=== PATIENT | female | born 1990 | race American Indian/Alaskan Native ===

== ENCOUNTER 2016-12-09 10:25 | Emergency (ER) | payer MEDICAID, OTHER ==
[2016-12-09 10:25] VITALS: BMI 26.6
[2016-12-09 10:34] VITALS: BP 115/61; PULSE 66; RESP 18; TEMP 98.6; O2SAT 100
[2016-12-09] MEDS ORDERED: Sodium Chloride 0.9% 1,000 ML IV STA (11:11)
--- NOTE | 2016-12-09 11:49 | ED PDOC ---
HPI: Back Time Seen by Provider: 12/09/16 11:09 Chief Complaint (Nursing): Back Pain Chief Complaint (Provider): back History Per: Patient History/Exam Limitations: no limitations Additional Complaint(s): 26yo F in ED for eval of flank pain x 2-3days with increased urination, discomfort and nausea without vomiting non fever or chills. admits to vaginal bleeding-but states last week she had her menstrual and is now seeing menstrual like vaginal bleeding. Past Medical History Reviewed: Historical Data, Nursing Documentation, Vital Signs Vital Signs: Last Vital Signs Temp 98.6 F 12/09/16 10:33 Pulse 66 12/09/16 10:33 Resp 18 12/09/16 10:33 BP 115/61 12/09/16 10:33 Pulse Ox 100 12/09/16 10:33 - Medical History PMH: No Chronic Diseases - Family History Family History: States: No Known Family Hx - Home Medications Home Medications: Ambulatory Orders Medication Instructions Recorded Acyclovir [Zovirax] 400 mg PO TID #15 cap 09/09/14 Docusate [Colace] 100 mg PO BID #14 cap 12/09/16 - Allergies Allergies/Adverse Reactions: Allergies Allergy/AdvReac Type Severity Reaction Status Date / Time antiemetic Allergy ANAPHYLAXIS Uncoded 12/09/16 11:00 Review of Systems ROS Statement: Except As Marked, All Systems Reviewed And Found Negative Constitutional: Negative for: Fever, Chills Gastrointestinal: Positive for: Nausea. Negative for: Vomiting, Abdominal Pain Genitourinary Female: Positive for: Frequency, Hematuria Musculoskeletal: Positive for: Back Pain Physical Exam - Reviewed Nursing Documentation Reviewed: Yes Vital Signs Reviewed: Yes - Physical Exam Appears: Positive for: Well, Non-toxic, No Acute Distress Skin: Positive for: Normal Color, Warm, DRY Cardiovascular/Chest: Positive for: Regular Rate, Rhythm Respiratory: Positive for: CNT, Normal Breath Sounds Gastrointestinal/Abdominal: Positive for: Normal Exam, Bowel Sounds, Soft. Negative for: Tenderness Back: Positive for: L CVA Tenderness, R CVA Tenderness Neurologic/Psych: Positive for: Alert, Oriented - Laboratory Results Result Diagrams: 12/09/16 11:40 12/09/16 11:40 - ECG O2 Sat by Pulse Oximetry: 100 - Progress ED Course And Treament: Orders Category Date Time Status ABD & PELVIS W/O PO OR IV CONT [CT] Stat CT 12/09/16 11:11 Ordered COMP METABOLIC PANEL Stat Chem 12/09/16 11:11 Ordered CBC (WITH DIFFERENTIAL) Stat RODRIGO 12/09/16 11:10 Ordered Ketorolac [Toradol] Med 12/09/16 11:11 Discontinued 30 mg IVP STAT STA Sodium Chloride 0.9% 1,000 ml Med 12/09/16 11:11 Active IV 1,000 mls/hr URINE CULTURE Stat Micro 12/09/16 11:36 Ordered URINALYSIS Stat URINALYSIS 12/09/16 11:11 Ordered Medical Decision Making Medical Decision Making: ct scn shows constipation. Udip" shows moderate blood(pt on menstrual ) no leuk or nitrates. Pt given colace and advised to f.u with pmd to have reapt UA. Orders Category Date Time Status ABD & PELVIS W/O PO OR IV CONT [CT] Stat CT 12/09/16 11:11 Completed COMP METABOLIC PANEL Stat Chem 12/09/16 11:40 Completed CBC (WITH DIFFERENTIAL) Stat RODRIGO 12/09/16 11:40 Completed Ketorolac [Toradol] Med 12/09/16 11:11 Discontinued 30 mg IVP STAT STA Sodium Chloride 0.9% 1,000 ml Med 12/09/16 11:11 Discontinued IV 1,000 mls/hr URINE CULTURE Stat Micro 12/09/16 11:37 Received URINALYSIS Stat URINALYSIS 12/09/16 11:37 Completed Disposition - Clinical Impression Clinical Impression: Constipation - Patient ED Disposition Is Patient to be Admitted: No Counseled Patient/Family Regarding: Studies Performed, Diagnosis, Need For Followup, Rx Given - Disposition [facility]errals: [facility]Outside] [facility] [Outside] Disposition: Routine/Home Disposition Time: 13:17 Condition: STABLE Prescriptions: Docusate [Colace] 100 mg PO BID #14 cap Instructions: Constipation (ED) Forms: Laguo (Polish)
[2016-12-09 12:04] LABS: RBC URINE 27 /hpf (0-3); URINE BACTERIA OCC (<OCC); URINE BILIRUBIN NEGATIVE (NEGATIVE); URINE BLOOD MODERATE (NEGATIVE); URINE COLOR YELLOW (YELLOW); URINE GLUCOSE (UA) NEG (Normal); URINE KETONE NEGATIVE (NEGATIVE); URINE LEUKOCYTE ESTERASE SMALL Leu/uL (Negative); URINE PROTEIN 30 mg/dL (NEGATIVE); URINE UROBILINOGEN 0.2-1.0 mg/dL (0.2-1.0); WBC URINE 46 /hpf (0-5)
[2016-12-09 12:05] LABS: BASO # 0.1 K/uL (0.0-0.2); BASO % 0.6 % (0.0-2.0); EOS % 0.3 % (0.0-4.0); HEMATOCRIT 35.6 % (34.0-47.0); LYMPH # 1.4 K/uL (1.0-4.3); LYMPH % 12.6 % (20.0-40.0); MEAN CELL VOLUME 83.2 fl (81.0-99.0); MEAN CORPUSCULAR HEMOGLOBIN 26.5 pg (27.0-31.0); MEAN CORPUSCULAR HGB CONC 31.8 g/dL (33.0-37.0); MEAN PLATELET VOLUME 10.2 fl (7.2-11.7); MONO # 0.8 K/uL (0.0-0.8); MONO % 6.9 % (0.0-10.0); NEUT # 8.8 K/uL (1.8-7.0); NEUT % 79.6 % (50.0-75.0); RED CELL DISTRIBUTION WIDTH 14.4 % (11.5-14.5); WHITE BLOOD COUNT 11.1 K/uL (4.8-10.8)
[2016-12-09 12:26] LABS: ALB/GLOB RATIO 1.4 (1.0-2.1); ALKALINE PHOSPHATASE 59 U/L (38-126); ALT/SGPT 24 U/L (9-52); AST/SGOT 28 U/L (14-36); BILIRUBIN,TOTAL 0.2 mg/dl (0.2-1.3); BLOOD UREA NITROGEN 9 mg/dl (7-17); CALCIUM 8.9 mg/dL (8.4-10.2); CARBON DIOXIDE 24 mmol/L (22-30); CHLORIDE 106 mmol/L (98-107); GFR AFRICAN-AMERICAN > 60; GLUCOSE,RANDOM 83 mg/dL (65-105); POTASSIUM 3.9 MMOL/L (3.6-5.0); SODIUM 141 mmol/l (132-148)
--- NOTE | 2016-12-09 12:54 | CT ---
PROCEDURE: CT Abdomen and Pelvis without Oral or IV contrast. HISTORY: Flank pain COMPARISON: None available. TECHNIQUE: Contiguous axial images of the abdomen and pelvis. No oral or IV contrast administered. Coronal and Sagittal reformats generated and reviewed. Radiation dose: Total exam DLP = 860.59 mGy-cm. This CT exam was performed using one or more of the following dose reduction techniques: Automated exposure control, adjustment of the mA and/or kV according to patient size, and/or use of iterative reconstruction technique. FINDINGS: There is limited evaluation of the solid organs without the administration of IV contrast. LOWER THORAX: No visible consolidation, pleural effusion, or pneumothorax. LIVER: Unremarkable unenhanced appearance. GALLBLADDER AND BILE DUCTS: Contracted gallbladder appears otherwise grossly unremarkable. PANCREAS: Unremarkable unenhanced appearance. SPLEEN: Unremarkable unenhanced appearance. ADRENALS: Unremarkable unenhanced appearance. KIDNEYS AND URETERS: No hydronephrosis or obstructing renal calculus. BLADDER: The urinary bladder appears unremarkable. REPRODUCTIVE: Uterus is present. APPENDIX: The appendix appears within normal limits of caliber. No secondary signs of acute appendicitis. BOWEL: The stomach is nondistended. Lack of oral contrast limits evaluation for bowel pathology. The bowel loops appear within normal limits of caliber without evidence of intestinal obstruction. [id number] constipation. PERITONEUM: No significant free fluid. No definite free air. LYMPH NODES: No bulky lymphadenopathy identified. VASCULATURE: No aortic aneurysm. BONES: No acute osseous abnormality is detected. OTHER FINDINGS: None. IMPRESSION: Mild to moderate constipation.
== END 2016-12-09 13:27 | disposition home or self-care (01) ==
LOC: H.ER 10:25
DX: K59.00 Constipation, unspecified (principal)
CPT/HCPCS: 74176; 80053; 81003; 81025; 85025; 87086; 87181; 96361; 96374; 99282; J1885; J7040

== ENCOUNTER 2016-12-14 23:40 | Observation (INO) | payer MEDICAID ==
[2016-12-14 23:41] VITALS: BMI 26.6
[2016-12-15] MEDS ORDERED: Sodium Chloride 0.9% 1,000 ML IV STA ×2 (00:22→05:01)
--- NOTE | 2016-12-15 00:25 | ED PDOC ---
HPI: Abdomen Time Seen by Provider: 12/14/16 23:49 Chief Complaint (Nursing): GI Problem Chief Complaint (Provider): vomiting History Per: Patient History/Exam Limitations: no limitations Onset/Duration Of Symptoms: Hrs (4) Current Symptoms Are (Timing): Still Present Location Of Pain/Discomfort: RLQ, LLQ, Suprapubic Quality Of Discomfort: Cramping Associated Symptoms: Nausea, Vomiting, Urinary Symptoms Additional History Per: Patient Additional Complaint(s): 26 y/o female presents for evaluation of multiple nonbilious vomiting episodes x 4 hours. Associated lower abdominal pain. Patient states she was seen in ED 12/09/16 and diagnosed with urinary tract infection, has been taking Macrobid. Denies fever, headache, dizziness, chest pain, shortness of breath, palpitations , changes in bowel movements, recent travel. Past Medical History Reviewed: Historical Data, Nursing Documentation, Vital Signs Vital Signs: Last Vital Signs Temp 98.0 F 12/14/16 23:43 Pulse 89 12/14/16 23:43 Resp 16 12/14/16 23:43 BP 154/63 H 12/14/16 23:43 Pulse Ox 100 12/15/16 05:14 - Medical History PMH: No Chronic Diseases - Surgical History Other surgeries: benign brain tumor removal - Family History Family History: States: No Known Family Hx - Social History Current smoker - smoking cessation education provided: No Ex-Smoker (has not smoked in the last 12 months): No Alcohol: Social Drugs: Denies - Home Medications Home Medications: Ambulatory Orders Medication Instructions Recorded Acyclovir [Zovirax] 400 mg PO TID #15 cap 09/09/14 Docusate [Colace] 100 mg PO BID #14 cap 12/09/16 Nitrofurantoin Macrocrystals 100 mg PO BID #14 cap 12/09/16 [Macrobid] - Allergies Allergies/Adverse Reactions: Allergies Allergy/AdvReac Type Severity Reaction Status Date / Time antiemetic Allergy ANAPHYLAXIS Uncoded 12/09/16 11:00 Review of Systems ROS Statement: Except As Marked, All Systems Reviewed And Found Negative Gastrointestinal: Positive for: Nausea, Vomiting, Abdominal Pain Genitourinary Female: Positive for: Frequency Physical Exam - Reviewed Nursing Documentation Reviewed: Yes Vital Signs Reviewed: Yes - Physical Exam Appears: Positive for: Well, Non-toxic, No Acute Distress Head Exam: Positive for: ATRAUMATIC, NORMAL INSPECTION, NORMOCEPHALIC Skin: Positive for: Normal Color Eye Exam: Positive for: Normal appearance ENT: Positive for: Normal ENT Inspection Cardiovascular/Chest: Positive for: Regular Rate, Rhythm Respiratory: Positive for: Normal Breath Sounds Gastrointestinal/Abdominal: Positive for: Normal Exam, Bowel Sounds, Soft, Tenderness (suprapubic, rlq). Negative for: Distended, Guarding, Rebound Back: Positive for: Normal Inspection Extremity: Positive for: Normal ROM Neurologic/Psych: Positive for: Alert, Oriented - Laboratory Results Result Diagrams: 12/15/16 00:20 12/15/16 00:20 - ECG O2 Sat by Pulse Oximetry: 100 - Progress ED Course And Treament: labs, urine, CT abd/pelvis with contrast, IV fluids, IV zofran Patient given second dose of Zofran for returning nausea. IV toradol ordered for pain. EXAM: CT Abdomen and Pelvis With Intravenous Contrast EXAM DATE/TIME: 12/15/2016 1:17 AM CLINICAL HISTORY: 26 years old, female; Pain; Abdominal pain; Localized; Lower; Additional info: Abd pain, vomiting TECHNIQUE: Axial computed tomography images of the abdomen and pelvis with intravenous contrast. All CT scans at this facility use one or more dose reduction techniques, viz.: automated exposure control; ma/kV adjustment per patient size (including targeted exams where dose is matched to indication; i.e. head); or iterative reconstruction technique. Coronal and sagittal reformatted images were created and reviewed. CONTRAST: 90 mL of [id number] administered intravenously. COMPARISON: Prior CT abdomen and pelvis of 2016-12-09 FINDINGS: LOWER THORAX: No infiltrate seen in the lung bases. ABDOMEN: LIVER: No acute abnormality of the liver identified. GALLBLADDER AND BILE DUCTS: No CT evidence of acute cholecystitis. No evidence of significant biliary ductal dilatation. PANCREAS: No CT evidence of acute pancreatitis. SPLEEN: No acute abnormality of the spleen identified. ADRENALS: No acute abnormality of the adrenal glands identified. KIDNEYS AND URETERS: No acute abnormality of the kidneys identified. No evidence of significant hydrouereteronephrosis. STOMACH AND BOWEL: No acute abnormality of the stomach, small bowel or colon identified. No evidence of bowel obstruction. APPENDIX: Appendix is seen, images 46-49 of series 601. It is fluid-filled, and is top normal in caliber, measuring up to 6 mm in diameter. There is no adjacent inflammation. There is no evidence of significant appendiceal wall thickening or enhancement. PELVIS: BLADDER: No acute abnormality of the bladder identified. REPRODUCTIVE:No acute abnormality of the reproductive organs is seen. No acute abnormality of the uterus identified. No evidence of large adnexal masses. ABDOMEN and PELVIS: INTRAPERITONEAL SPACE: Tiny amount of free fluid in the cul-de-sac. This is most likely physiologic in nature. No evidence of free air. BONES/JOINTS: No acute fractures or other acute bony abnormality noted. SOFT TISSUES: No acute abnormality of the visualized soft tissues is seen. VASCULATURE: No evidence of abdominal aortic aneurysm. No evidence of periaortic hemorrhage. LYMPH NODES: No evidence of diffuse lymphadenopathy. IMPRESSION: - Appendix is fluid-filled and top normal in size, but there is no adjacent inflammation. Findings are most likely within normal limits. However, if there is any clinical concern for early acute appendicitis, consider a short term followup CT scan, to reassess the appendix. - Otherwise, no evidence of significant acute process. - See above for remaining findings. On re-eval, patient actively vomiting. Case discussed with Dr. Valdez, Hospitalist on-call, regarding placement in observation for intractable vomiting. Case discussed with Dr. Strong, rn surgical on-call, regarding consult Disposition - Clinical Impression Clinical Impression: Intractable vomiting, Abdominal pain - Patient ED Disposition Is Patient to be Admitted: Yes - Disposition Disposition Time: 05:15 Condition: FAIR
[2016-12-15 00:41] LABS: BASO % 0.3 % (0.0-2.0); EOS % 0.3 % (0.0-4.0); HEMATOCRIT 39.5 % (34.0-47.0); LYMPH # 0.8 K/uL (1.0-4.3); LYMPH % 7.4 % (20.0-40.0); MEAN CELL VOLUME 83.6 fl (81.0-99.0); MEAN CORPUSCULAR HEMOGLOBIN 26.2 pg (27.0-31.0); MEAN CORPUSCULAR HGB CONC 31.4 g/dL (33.0-37.0); MEAN PLATELET VOLUME 10.7 fl (7.2-11.7); MONO # 0.8 K/uL (0.0-0.8); MONO % 7.2 % (0.0-10.0); NEUT # 9.6 K/uL (1.8-7.0); NEUT % 84.8 % (50.0-75.0); PLATELET COUNT 231 K/uL (130-400); RED CELL DISTRIBUTION WIDTH 14.4 % (11.5-14.5); WHITE BLOOD COUNT 11.3 K/uL (4.8-10.8)
[2016-12-15 00:49] LABS: RBC URINE 11 /hpf (0-3); URINE BILIRUBIN SMALL (NEGATIVE); URINE BLOOD NEGATIVE (NEGATIVE); URINE COLOR AMBER (YELLOW); URINE GLUCOSE (UA) NEG (Normal); URINE KETONE NEGATIVE (NEGATIVE); URINE LEUKOCYTE ESTERASE SMALL Leu/uL (Negative); URINE PROTEIN 100 mg/dL (NEGATIVE); WBC URINE 13 /hpf (0-5)
[2016-12-15 00:55] LABS: ALB/GLOB RATIO 1.3 (1.0-2.1); ALKALINE PHOSPHATASE 65 U/L (38-126); ALT/SGPT 21 U/L (9-52); AST/SGOT 44 U/L (14-36); BILIRUBIN,TOTAL 0.9 mg/dl (0.2-1.3); BLOOD UREA NITROGEN 10 mg/dl (7-17); CALCIUM 9.1 mg/dL (8.4-10.2); CARBON DIOXIDE 22 mmol/L (22-30); CHLORIDE 102 mmol/L (98-107); GFR AFRICAN-AMERICAN > 60; GLUCOSE,RANDOM 86 mg/dL (65-105); LIPASE 83 U/L (23-300); POTASSIUM 4.7 MMOL/L (3.6-5.0); SODIUM 139 mmol/l (132-148); TOTAL PROTEIN 8.5 G/DL (6.3-8.2)
[2016-12-15] MEDS ORDERED: Iohexol 240 (50 ml) PO ONE (01:17)
[2016-12-15] MEDS ORDERED: Iohexol 240 (50 ml) ONE (01:19)
[2016-12-15 01:59] LABS: EOSINOPHIL 1 % (0-7); NEUTROPHIL 81 % (42-75); TOTAL CELLS COUNTED 100
[2016-12-15 02:00] LABS: STOMATOCYTES SLIGHT
[2016-12-15] MEDS ORDERED: Sodium Chloride 0.9% 50 ML IV ONE (02:37)
[2016-12-15] MEDS ORDERED: Iohexol 300 100 ML IJ ONE (02:37)
--- NOTE | 2016-12-15 03:49 | CT ---
EXAM: CT Abdomen and Pelvis With Intravenous Contrast EXAM DATE/TIME: 12/15/2016 1:17 AM CLINICAL HISTORY: 26 years old, female; Pain; Abdominal pain; Localized; Lower; Additional info: Abd pain, vomiting TECHNIQUE: Axial computed tomography images of the abdomen and pelvis with intravenous contrast. All CT scans at this facility use one or more dose reduction techniques, viz.: automated exposure control; ma/kV adjustment per patient size (including targeted exams where dose is matched to indication; i.e. head); or iterative reconstruction technique. Coronal and sagittal reformatted images were created and reviewed. CONTRAST: 90 mL of [id number] administered intravenously. COMPARISON: Prior CT abdomen and pelvis of 2016-12-09 FINDINGS: LOWER THORAX: No infiltrate seen in the lung bases. ABDOMEN: LIVER: No acute abnormality of the liver identified. GALLBLADDER AND BILE DUCTS: No CT evidence of acute cholecystitis. No evidence of significant biliary ductal dilatation. PANCREAS: No CT evidence of acute pancreatitis. SPLEEN: No acute abnormality of the spleen identified. ADRENALS: No acute abnormality of the adrenal glands identified. KIDNEYS AND URETERS: No acute abnormality of the kidneys identified. No evidence of significant hydrouereteronephrosis. STOMACH AND BOWEL: No acute abnormality of the stomach, small bowel or colon identified. No evidence of bowel obstruction. APPENDIX: Appendix is seen, images 46-49 of series 601. It is fluid-filled, and is top normal in caliber, measuring up to 6 mm in diameter. There is no adjacent inflammation. There is no evidence of significant appendiceal wall thickening or enhancement. PELVIS: BLADDER: No acute abnormality of the bladder identified. REPRODUCTIVE:No acute abnormality of the reproductive organs is seen. No acute abnormality of the uterus identified. No evidence of large adnexal masses. ABDOMEN and PELVIS: INTRAPERITONEAL SPACE: Tiny amount of free fluid in the cul-de-sac. This is most likely physiologic in nature. No evidence of free air. BONES/JOINTS: No acute fractures or other acute bony abnormality noted. SOFT TISSUES: No acute abnormality of the visualized soft tissues is seen. VASCULATURE: No evidence of abdominal aortic aneurysm. No evidence of periaortic hemorrhage. LYMPH NODES: No evidence of diffuse lymphadenopathy. IMPRESSION: - Appendix is fluid-filled and top normal in size, but there is no adjacent inflammation. Findings are most likely within normal limits. However, if there is any clinical concern for early acute appendicitis, consider a short term followup CT scan, to reassess the appendix. - Otherwise, no evidence of significant acute process. - See above for remaining findings.
--- NOTE | 2016-12-15 06:16 | CP.PCM.HP ---
History of Present Illness - History of Present Illness History of Present Illness: CC: Abdominal pain This is a 26 year old female with a past medical history of urinary tract infection diagnosed on 12/09/2016, history of benign brain tumor status post removal, who presents to the emergency department with the complaint of right lower quadrant abdominal pain starting yesterday evening at 8 PM described as sharp, crampy, nonradiating, worse with movement, moderate in severity. The pain is associated with nonbilious nonbloody emesis. She states she has vomited multiple times since 8 PM prompting her to come to the emergency department. Here in the emergency department, the patient's vitals were found to be stable. Given her symptoms, a CT scan of the abdomen and pelvis was performed revealing findings compatible with possible early appendicitis. Despite multiple administrations of Zofran, the patient still remains nauseated and has intractable vomiting. Laboratory findings reveal a mild leukocytosis of 11.3, neutrophil count of 84.8. CMP shows a mild elevation in AST at 44 but normal ALT at 21, alkaline phosphatase is 65. Urinalysis reveals concentrated urine and some white blood cells, although she has a known diagnosis of UTI. It does show urobilinogen of 4.0 as well which is increased from normal range back on . Given the patient's intractable vomiting and possible early appendicitis, she is to be placed on observation for further workup and management. The patient denies any chance she might be . Surgery consultation was obtained from the ER.Patient denies chest pain, shortness of breath, fevers, chills, nausea, vomiting, diarrhea, headache. Rest of ROS as below. All of the patient's and/or family's questions were answered at the bedside. Present on Admission - Present on Admission Any Indicators Present on Admission: No Review of Systems - Hematologic/Lymphatic Additional comments: GENERAL/CONSTITUTIONAL: The patient denies fever, fatigue, weakness, weight gain or weight loss. HEAD, EYES, EARS, NOSE AND THROAT: Eyes - The patient denies pain, redness, loss of vision, double or blurred vision, flashing lights or spots, dryness, Ears, nose, mouth and throat. The patient denies ringing in the ears, loss of hearing, nosebleeds, loss of sense of smell, dry sinuses, sinusitis, post nasal drip, CARDIOVASCULAR: The patient denies chest pain, chest pressure, or irregular heartbeats, RESPIRATORY: The patient denies chronic dry cough, coughing up blood, coughing up mucus, wheezing, or shortness of breath. GASTROINTESTINAL: Abdominal pain as in HPI. Nausea and vomiting as in HPI. The patient denies vomiting blood or coffee ground material, heartburn, regurgitation, diarrhea, constipation, gas, blood in the stools, black tarry stools. GENITOURINARY: The patient denies difficult urination, pain or burning with urination, blood in the urine, frequency, or urgency MUSCULOSKELETAL: The patient denies arm, buttock, thigh or calf cramps. No joint or muscle pain. No muscle weakness or tenderness. No joint swelling, neck pain, back pain. SKIN: The patient denies easy bruising, skin redness, skin rash, hives, sensitivity to sun exposure, tightness, nodules or bumps, hair loss, color changes in the hands or feet with cold. NEUROLOGIC: The patient denies headache, dizziness, fainting, muscle spasm, loss of consciousness, sensitivity or pain in the hands and feet or memory loss. PSYCHIATRIC: The patient denies anxiety, depression, or thoughts of suicide. ENDOCRINE: The patient denies intolerance to hot or cold temperature, flushing, fingernail changes, increased thirst, increased salt intake or decreased sexual desire. HEMATOLOGIC/LYMPHATIC: The patient denies anemia, bleeding tendency or clotting tendency. ALLERGIC/IMMUNOLOGIC: The patient denies rhinitis, asthma, skin sensitivity, latex allergies or sensitivity. Past Patient History - Infectious Disease Hx of Infectious Diseases: None - Past Medical History & Family History Past Family History: Reviewed and not pertinent - Past Social History Smoking Status: Current Some Days Smoker Alcohol: Social Drugs: Denies - NEUROLOGICAL Other/Comment: brain tumor with surgery - PSYCHIATRIC Hx Substance Use: No - SURGICAL HISTORY Hx Surgeries: Yes Other/Comment: brain tumor removal - ANESTHESIA Hx Anesthesia: Yes Hx Anesthesia Reactions: No Meds Allergies/Adverse Reactions: Allergies Allergy/AdvReac Type Severity Reaction Status Date / Time metoclopramide [From Reglan] AdvReac WHEEZING Verified 12/15/16 05:35 antiemetic Allergy ANAPHYLAXIS Uncoded 12/09/16 11:00 Physical Exam - Additional Findings Additional findings: EXAM: Vitals stable and reviewed GEN: WDWN, alert, cooperative HEENT: NCAT, PERRL, EOMI Neck: supple, no lymphadenopathy CARDIO: +S1S2, RRR, NO M/R/G LUNG: CTAB, NO W/R/R ABD: soft, tender to palpation of the right lower quadrant, ND, tattoo noted no masses, no HSM EXT: no edema, pedal pulses Neuro: AAOx3, Strength equal, bilateral UE/LE Psych: normal mood, normal affect Results - Vital Signs Recent Vital Signs: Last Vital Signs Temp 98.9 F 12/15/16 05:42 Pulse 83 12/15/16 05:42 Resp 19 12/15/16 05:42 BP 102/61 12/15/16 05:42 Pulse Ox 100 12/15/16 05:42 - Labs Result Diagrams: 12/15/16 00:20 12/15/16 00:20 Labs: Laboratory Results - last 24 hr 12/15/16 12/15/16 12/15/16 00:20 00:20 00:20 WBC 11.3 H RBC 4.73 Hgb 12.4 Hct 39.5 MCV 83.6 MCH 26.2 L MCHC 31.4 L RDW 14.4 Plt Count 231 MPV 10.7 Neut % (Auto) 84.8 H Lymph % (Auto) 7.4 L Coke % (Auto) 7.2 Eos % (Auto) 0.3 Baso % (Auto) 0.3 Neut # 9.6 H Lymph # 0.8 L Coke # 0.8 Eos # 0.0 Baso # 0.0 Neutrophils % (Manual) 81 H Lymphocytes % (Manual) 10 L Monocytes % (Manual) 8 Eosinophils % (Manual) 1 Platelet Estimate Normal Anisocytosis (manual) Slight Stomatocytes Slight Sodium 139 Potassium 4.7 Chloride 102 Carbon Dioxide 22 Anion Gap 20 BUN 10 Creatinine 0.8 Est GFR ( Amer) > 60 Est GFR (Non-Af Amer) > 60 Random Glucose 86 Calcium 9.1 Total Bilirubin 0.9 AST 44 H D ALT 21 Alkaline Phosphatase 65 Total Protein 8.5 H Albumin 4.8 Globulin 3.7 Albumin/Globulin Ratio 1.3 Lipase 83 Urine Color Radha Urine Clarity Cloudy Urine pH 6.0 Ur Specific Jackpot 1.033 H Urine Protein 100 Urine Glucose (UA) Neg Urine Ketones Negative Urine Blood Negative Urine Nitrate Negative Urine Bilirubin Small Urine Urobilinogen 4.0 H Ur Leukocyte Esterase Small Urine RBC (Auto) 11 H Urine Microscopic WBC 13 H Ur Squamous Epith Cells 5 Assessment & Plan - Assessment and Plan (Free Text) Plan: ASSESSMENT - Right lower quadrant abdominal pain, likely possible early appendicitis on CT scan, no other evidence of acute abnormality on CT scan - Intractable nausea and vomiting, not responding to Zofran. F/u test - Mild elevation in ALT, uncertain etiology, with elevated urobilinogen in urine - UTI, subacute, on Macrobid, improving - Leukocytosis related to UTI and/or acute appendicitis PLAN - Med/surg observation - Surgical consultation called from ED - NPO status until nausea improves - Will start Compazine 5 mg IV q 4h PRN for nausea and vomiting and continue Zofran as well. Patient is allergic to Reglan. - Continue normal saline at 150 cc/hour for rehydration. She was given 2 liters bolus in the ED - Monitor electrolytes, trend CBC. - Continue Macrobid - F/u test - DVT prophylaxis with SCDs as patient may require surgery.
[2016-12-15] MEDS: Sodium Chloride 0.9% 1,000 ML IV SCH ×3 (06:17→21:21)
--- NOTE | 2016-12-15 10:51 | CP.PCM.CON ---
History of Present Illness - History of Present Illness History of Present Illness: Surgery: Dr. Holder CC: n/v, RLQ abdominal pain HPI: Patient is a 26 y/o female w/ significant pmhx pituitary adenoma s/p resection 4years ago present complaining of nausea and vomiting that started around 8 pm last night. She states that she had eaten chicken and rice earlier in the day w/o any symptoms. She states the RLQ abdominal pain started after the nausea and vomiting. She describes the pain as sharp in nature located in RLQ with some radiation to the midline. She denies having similar pain in the past. She states she recently had UTI which she is finishing a course of antibiotics but did not have pain like this. She denies constipation or diarrhea , fever or chills. She denies sick contacts. PMH: pituitary adenoma, UTI currently on Macrobid PSH: pituitary adenectomy Social: denies ETOH, tobacco, drug abuse Review of Systems - Review of Systems All systems: reviewed and no additional remarkable complaints except Review of Systems: unless stated in HPI Past Patient History - Infectious Disease Hx of Infectious Diseases: None - Past Medical History & Family History Past Family History: Reviewed and not pertinent - Past Social History Smoking Status: Current Some Days Smoker Alcohol: Social Drugs: Denies - NEUROLOGICAL Other/Comment: brain tumor with surgery - PSYCHIATRIC Hx Substance Use: No - SURGICAL HISTORY Hx Surgeries: Yes Other/Comment: brain tumor removal - ANESTHESIA Hx Anesthesia: Yes Hx Anesthesia Reactions: No Meds Allergies/Adverse Reactions: Allergies Allergy/AdvReac Type Severity Reaction Status Date / Time metoclopramide [From Reglan] AdvReac WHEEZING Verified 12/15/16 06:47 antiemetic Allergy ANAPHYLAXIS Uncoded 12/09/16 11:00 - Medications Medications: Current Medications Home Med (Norgestimate-Ethinyl Estradiol [Tri-Sprintec Tablet]) 1 tab PO DAILY [facility] Sodium Chloride (Sodium Chloride 0.9%) 1,000 mls @ 150 mls/hr IV .Q6H40M [facility] Stop: 12/16/16 05:42 Last Admin: 12/15/16 06:17 Dose: 150 mls/hr Piperacillin Sod/Tazobactam Sod (Zosyn 3.375 Gm Iv Premix) 3.375 gm in 50 mls @ 50 mls/hr IVPB Q6 VASILIY PRN Reason: Protocol Ketorolac Tromethamine (Toradol) 30 mg IVP Q6 PRN PRN Reason: Pain, moderate (4-7) Nitrofurantoin Macrocrystals (Macrobid) 100 mg PO BID VASILIY Ondansetron HCl (Zofran Inj) 4 mg IVP Q6 PRN PRN Reason: Nausea/Vomiting Promethazine HCl (Phenergan Inj) 25 mg IM Q6 PRN PRN Reason: Nausea/Vomiting Last Admin: 12/15/16 06:52 Dose: 25 mg Physical Exam - Constitutional Appears: Non-toxic, No Acute Distress - Head Exam Head Exam: ATRAUMATIC, NORMOCEPHALIC - Eye Exam Eye Exam: EOMI, Normal appearance - ENT Exam ENT Exam: Mucous Membranes Moist - Respiratory Exam Respiratory Exam: NORMAL BREATHING PATTERN. absent: Respiratory Distress - Cardiovascular Exam Cardiovascular Exam: REGULAR RHYTHM. absent: Tachycardia - GI/Abdominal Exam GI & Abdominal Exam: Guarding (RLQ), Tenderness. absent: Distended, Rebound Additional comments: +McBurney's, -Rovsing's, -Psoas, -Obturatior Signs - Extremities Exam Extremities exam: Positive for: normal inspection. Negative for: calf tenderness - Neurological Exam Neurological exam: Alert, Oriented x3 - Psychiatric Exam Psychiatric exam: Normal Affect, Normal Mood - Skin Skin Exam: Dry, Normal Color, Warm Results - Vital Signs Recent Vital Signs: Last Vital Signs Temp 99 F 12/15/16 09:49 Pulse 80 12/15/16 09:49 Resp 18 12/15/16 09:49 BP 106/56 L 12/15/16 09:49 Pulse Ox 100 12/15/16 09:49 - Labs Result Diagrams: 12/15/16 00:20 12/15/16 00:20 Labs: Laboratory Results - last 24 hr 12/15/16 12/15/16 12/15/16 00:20 00:20 00:20 WBC 11.3 H RBC 4.73 Hgb 12.4 Hct 39.5 MCV 83.6 MCH 26.2 L MCHC 31.4 L RDW 14.4 Plt Count 231 MPV 10.7 Neut % (Auto) 84.8 H Lymph % (Auto) 7.4 L [place] % (Auto) 7.2 Eos % (Auto) 0.3 Baso % (Auto) 0.3 Neut # 9.6 H Lymph # 0.8 L [place] # 0.8 Eos # 0.0 Baso # 0.0 Neutrophils % (Manual) 81 H Lymphocytes % (Manual) 10 L Monocytes % (Manual) 8 Eosinophils % (Manual) 1 Platelet Estimate Normal Anisocytosis (manual) Slight Stomatocytes Slight Sodium 139 Potassium 4.7 Chloride 102 Carbon Dioxide 22 Anion Gap 20 BUN 10 Creatinine 0.8 Est GFR ( Amer) > 60 Est GFR (Non-Af Amer) > 60 Random Glucose 86 Calcium 9.1 Total Bilirubin 0.9 AST 44 H D ALT 21 Alkaline Phosphatase 65 Total Protein 8.5 H Albumin 4.8 Globulin 3.7 Albumin/Globulin Ratio 1.3 Lipase 83 Urine Color Radha Urine Clarity Cloudy Urine pH 6.0 Ur Specific [place] 1.033 H Urine Protein 100 Urine Glucose (UA) Neg Urine Ketones Negative Urine Blood Negative Urine Nitrate Negative Urine Bilirubin Small Urine Urobilinogen 4.0 H Ur Leukocyte Esterase Small Urine RBC (Auto) 11 H Urine Microscopic WBC 13 H Ur Squamous Epith Cells 5 Assessment & Plan - Assessment and Plan (Free Text) Assessment: 26 y/o female w/ RLQ abdominal pain, possible early appendicitis Plan: -OR today for appendectomy -NPO -ABX -pain control -repeat labs -d/w Dr. Gallo Porter PGY3
[2016-12-15] MEDS: NORGESTIMATE ETHINYL ESTRADIOL PO SCH (11:32)
[2016-12-15] MEDS: Piperacill/Tazo 3.375gm in Dex 3.375 GM/50 ML BAG IVPB SCH ×3 (11:32→21:20)
[2016-12-15 11:35] LABS: BASO % 0.2 % (0.0-2.0); EOS % 0.1 % (0.0-4.0); HEMATOCRIT 35.2 % (34.0-47.0); LYMPH # 0.6 K/uL (1.0-4.3); LYMPH % 10.4 % (20.0-40.0); MEAN CORPUSCULAR HEMOGLOBIN 26.4 pg (27.0-31.0); MEAN CORPUSCULAR HGB CONC 31.8 g/dL (33.0-37.0); MONO # 0.5 K/uL (0.0-0.8); MONO % 7.7 % (0.0-10.0); NEUT % 81.6 % (50.0-75.0); RED CELL DISTRIBUTION WIDTH 14.2 % (11.5-14.5); WHITE BLOOD COUNT 6.1 K/uL (4.8-10.8)
[2016-12-15 11:41] LABS: ALB/GLOB RATIO 1.4 (1.0-2.1); ALKALINE PHOSPHATASE 61 U/L (38-126); ALT/SGPT 29 U/L (9-52); AST/SGOT 36 U/L (14-36); BILIRUBIN,TOTAL 0.6 mg/dl (0.2-1.3); BLOOD UREA NITROGEN 9 mg/dl (7-17); CALCIUM 7.5 mg/dL (8.4-10.2); CARBON DIOXIDE 22 mmol/L (22-30); CHLORIDE 106 mmol/L (98-107); GFR AFRICAN-AMERICAN > 60; GLUCOSE,RANDOM 79 mg/dL (65-105); POTASSIUM 3.8 MMOL/L (3.6-5.0); SODIUM 137 mmol/l (132-148); TOTAL PROTEIN 6.9 G/DL (6.3-8.2)
[2016-12-15] MEDS ORDERED: Pneumococcal 23-Valent Vaccine IM ONE (12:48)
[2016-12-15] MEDS ORDERED: Influenza Vaccine 18yr & older 0.5 ML/45 MCG SYR IM ONE (13:05)
[2016-12-15] MEDS ORDERED: Bupivacaine 0.5% Inj(30mL) ONE (13:44)
[2016-12-15] MEDS ORDERED: Lidocaine 1% Inj (20ml) ONE (13:44)
[2016-12-15] MEDS ORDERED: Rocuronium 10 mg/ml (5 ml) ONE (14:32)
[2016-12-15] MEDS ORDERED: Succinylcholine 200 mg/10 ml Inj IV ONE (14:32)
[2016-12-15] MEDS ORDERED: Propofol 10 mg/ml Inj (20 ML) ONE (14:32)
[2016-12-15] MEDS ORDERED: Midazolam 2 MG/2 ML VIAL ONE (14:32)
[2016-12-15] MEDS ORDERED: Lactated Ringer's 1,000 ML IV ONE (14:50)
[2016-12-15] MEDS ORDERED: Sevoflurane - Inhalation Anesthetic Liq (250 ml) ONE (15:07)
[2016-12-15] MEDS ORDERED: Bupivacaine 0.5% Inj(30mL) IJ ONE (15:40)
[2016-12-15] MEDS ORDERED: Neostigmine Methylsulfate 2 MG/2 ML ML IV ONE (15:40)
[2016-12-15] MEDS ORDERED: HYDROmorphone 0.5 mg/0.5 ml ISec IVP PRN (15:59)
--- NOTE | 2016-12-15 16:09 | PCM.SURG1 ---
Surgeon's Initial Post Op Note - Surgeon's Notes Surgeon: Dr. Holder Home Health Attendant: Dr. Bosch PGY-3, Dr. Mccray PGY-2, Dr. Vyas PGY-2 Type of Anesthesia: General Endo Pre-Operative Diagnosis: acute appendicitis Operative Findings: appendicitis Post-Operative Diagnosis: same Operation Performed: laparoscopic appendectomy Specimen/Specimens Removed: appendix Estimated Blood Loss: EBL {In ML}: 5 Blood Products Given: N/A Drains Used: No Drains Post-Op Condition: Good Date of Surgery/Procedure: 12/15/16 Time of Surgery/Procedure: 16:11
[2016-12-16] MEDS: Sodium Chloride 0.9% 1,000 ML IV SCH (02:36)
[2016-12-16 05:23] LABS: BASO % 0.1 % (0.0-2.0); EOS % 0.1 % (0.0-4.0); HEMATOCRIT 29.7 % (34.0-47.0); LYMPH # 1.1 K/uL (1.0-4.3); LYMPH % 17.7 % (20.0-40.0); MEAN CELL VOLUME 82.6 fl (81.0-99.0); MEAN CORPUSCULAR HEMOGLOBIN 26.5 pg (27.0-31.0); MEAN CORPUSCULAR HGB CONC 32.1 g/dL (33.0-37.0); MEAN PLATELET VOLUME 10.5 fl (7.2-11.7); MONO # 0.6 K/uL (0.0-0.8); MONO % 9.3 % (0.0-10.0); NEUT # 4.5 K/uL (1.8-7.0); NEUT % 72.8 % (50.0-75.0); RED CELL DISTRIBUTION WIDTH 14.4 % (11.5-14.5); WHITE BLOOD COUNT 6.2 K/uL (4.8-10.8)
[2016-12-16 05:33] LABS: BLOOD UREA NITROGEN 6 mg/dl (7-17); CALCIUM 6.9 mg/dL (8.4-10.2); CARBON DIOXIDE 24 mmol/L (22-30); CHLORIDE 107 mmol/L (98-107); GFR AFRICAN-AMERICAN > 60; GLUCOSE,RANDOM 99 mg/dL (65-105); POTASSIUM 3.8 MMOL/L (3.6-5.0); SODIUM 139 mmol/l (132-148)
[2016-12-16] MEDS: Piperacill/Tazo 3.375gm in Dex 3.375 GM/50 ML BAG IVPB SCH ×2 (05:42→09:18)
--- NOTE | 2016-12-16 07:38 | CP.PCM.PN ---
Subjective - Date & Time of Evaluation Date of Evaluation: 12/16/16 Time of Evaluation: 06:50 - Subjective Subjective: Patient seen and examined this AM. NAEO. Patient denies any nausea, vomiting, and is tolerating regular diet with minimal pain. Objective - Vital Signs/Intake and Output Vital Signs (last 24 hours): Temp Pulse Resp BP Pulse Ox 98.1 F 75 18 99/66 L 99 12/16/16 04:43 12/16/16 04:43 12/16/16 04:43 12/16/16 04:43 12/16/16 04:43 - Medications Medications: Current Medications Home Med (Norgestimate-Ethinyl Estradiol [Tri-Sprintec Tablet]) 1 tab PO DAILY [facility] Last Admin: 12/15/16 11:32 Dose: Not Given Piperacillin Sod/Tazobactam Sod (Zosyn 3.375 Gm Iv Premix) 3.375 gm in 50 mls @ 50 mls/hr IVPB Q6 VASILIY PRN Reason: Protocol Last Admin: 12/16/16 05:42 Dose: 50 mls/hr Influenza Virus Vaccine (Afluria (Pf)(18yr & Older)) 0.5 ml IM .ONCE ONE Stop: 12/17/19 09:01 Nitrofurantoin Macrocrystals (Macrobid) 100 mg PO BID [facility] Last Admin: 12/15/16 17:00 Dose: Not Given Ondansetron HCl (Zofran Inj) 4 mg IVP Q6 PRN PRN Reason: Nausea/Vomiting Pantoprazole Sodium (Protonix Inj) 40 mg IVP DAILY [facility] Tramadol HCl (Ultram) 50 mg PO Q6 PRN PRN Reason: Pain, moderate (4-7) - Labs Labs: 12/16/16 04:20 12/16/16 04:20 - Constitutional Appears: Non-toxic, No Acute Distress - Head Exam Head Exam: ATRAUMATIC, NORMOCEPHALIC - Eye Exam Eye Exam: Normal appearance. absent: Conjunctival injection, Scleral icterus - ENT Exam ENT Exam: Mucous Membranes Moist, Normal Oropharynx - Respiratory Exam Respiratory Exam: NORMAL BREATHING PATTERN. absent: Accessory Muscle Use, Respiratory Distress - Cardiovascular Exam Cardiovascular Exam: RRR - GI/Abdominal Exam GI & Abdominal Exam: Distended (mild), Soft, Tenderness (leah-incisional and suprapubic mild tendnerness) Additional comments: Surgical incision well approximate and covered in dermabond c/d/i - Extremities Exam Extremities Exam: absent: Calf Tenderness, Pedal Edema, Tenderness - Neurological Exam Neurological Exam: Alert, Awake, Oriented x3 - Psychiatric Exam Psychiatric exam: Normal Affect, Normal Mood - Skin Skin Exam: Dry, Normal Color, Warm Assessment and Plan - Assessment and Plan (Free Text) Assessment: 26F POD#1 s/p laparscopic appendectomy Plan: -Continue regular diet -PO pain medication -Encouraged ambulation and incentive spirometer use -Clear for discharge to home from a surgical standpoint. Should follow up with Dr. Holder in his office in 2 weeks. Thank you for this consult discussed with Dr. Elena, covering for Dr. Gallo Vyas, PGY2
[2016-12-16] MEDS: NORGESTIMATE ETHINYL ESTRADIOL PO SCH (09:19)
[2016-12-16 12:39] VITALS: BP 100/66; PULSE 77; RESP 100; TEMP 98.3; O2SAT 20
--- NOTE | 2016-12-16 14:04 | CP.PCM.DIS ---
Provider - Provider Date of Admission: 12/15/16 05:11 Attending physician: Suman Valdez DO Consults: Surgery consult Time Spent in preparation of Discharge (in minutes): 15 Hospital Course - Lab Results Lab Results: Micro Results 12/15/16 06:29 Urine,Clean Catch Urine Culture - Final No Growth (<1,000 CFU/ML) Most Recent Lab Values WBC 6.2 K/uL (4.8-10.8) 12/16/16 04:20 RBC 3.60 Mil/uL (3.80-5.20) L 12/16/16 04:20 Hgb 9.5 g/dL (12.0-16.0) L 12/16/16 04:20 Hct 29.7 % (34.0-47.0) L 12/16/16 04:20 MCV 82.6 fl (81.0-99.0) 12/16/16 04:20 MCH 26.5 pg (27.0-31.0) L 12/16/16 04:20 MCHC 32.1 g/dL (33.0-37.0) L 12/16/16 04:20 RDW 14.4 % (11.5-14.5) 12/16/16 04:20 Plt Count 187 K/uL (130-400) 12/16/16 04:20 MPV 10.5 fl (7.2-11.7) 12/16/16 04:20 Neut % (Auto) 72.8 % (50.0-75.0) 12/16/16 04:20 Lymph % (Auto) 17.7 % (20.0-40.0) L 12/16/16 04:20 [place] % (Auto) 9.3 % (0.0-10.0) 12/16/16 04:20 Eos % (Auto) 0.1 % (0.0-4.0) 12/16/16 04:20 Baso % (Auto) 0.1 % (0.0-2.0) 12/16/16 04:20 Neut # 4.5 K/uL (1.8-7.0) 12/16/16 04:20 Lymph # 1.1 K/uL (1.0-4.3) 12/16/16 04:20 [place] # 0.6 K/uL (0.0-0.8) 12/16/16 04:20 Eos # 0.0 K/uL (0.0-0.7) 12/16/16 04:20 Baso # 0.0 K/uL (0.0-0.2) 12/16/16 04:20 Neutrophils % (Manual) 81 % (42-75) H 12/15/16 00:20 Lymphocytes % (Manual) 10 % (20-50) L 12/15/16 00:20 Monocytes % (Manual) 8 % (0-10) 12/15/16 00:20 Eosinophils % (Manual) 1 % (0-7) 12/15/16 00:20 Platelet Estimate Normal (NORMAL) 12/15/16 00:20 Anisocytosis (manual) Slight 12/15/16 00:20 Stomatocytes Slight 12/15/16 00:20 Sodium 139 mmol/l (132-148) 12/16/16 04:20 Potassium 3.8 MMOL/L (3.6-5.0) 12/16/16 04:20 Chloride 107 mmol/L (98-107) 12/16/16 04:20 Carbon Dioxide 24 mmol/L (22-30) 12/16/16 04:20 Anion Gap 11 (10-20) 12/16/16 04:20 BUN 6 mg/dl (7-17) L 12/16/16 04:20 Creatinine 0.8 mg/dL (0.7-1.2) 12/16/16 04:20 Est GFR ( Amer) > 60 12/16/16 04:20 Est GFR (Non-Af Amer) > 60 12/16/16 04:20 Random Glucose 99 mg/dL (65-105) 12/16/16 04:20 Calcium 6.9 mg/dL (8.4-10.2) L 12/16/16 04:20 Total Bilirubin 0.6 mg/dl (0.2-1.3) 12/15/16 11:25 AST 36 U/L (14-36) 12/15/16 11:25 ALT 29 U/L (9-52) 12/15/16 11:25 Alkaline Phosphatase 61 U/L (38-126) 12/15/16 11:25 Total Protein 6.9 G/DL (6.3-8.2) 12/15/16 11:25 Albumin 4.0 g/dL (3.5-5.0) 12/15/16 11:25 Globulin 2.9 gm/dL (2.2-3.9) 12/15/16 11:25 Albumin/Globulin Ratio 1.4 (1.0-2.1) 12/15/16 11:25 Lipase 83 U/L (23-300) 12/15/16 00:20 Urine Color Radha (YELLOW) 12/15/16 00:20 Urine Clarity Cloudy (Clear) 12/15/16 00:20 Urine pH 6.0 (5.0-8.0) 12/15/16 00:20 Ur Specific [place] 1.033 (1.003-1.030) H 12/15/16 00:20 Urine Protein 100 mg/dL (NEGATIVE) 12/15/16 00:20 Urine Glucose (UA) Neg mg/dL (Normal) 12/15/16 00:20 Urine Ketones Negative mg/dL (NEGATIVE) 12/15/16 00:20 Urine Blood Negative (NEGATIVE) 12/15/16 00:20 Urine Nitrate Negative (NEGATIVE) 12/15/16 00:20 Urine Bilirubin Small (NEGATIVE) 12/15/16 00:20 Urine Urobilinogen 4.0 mg/dL (0.2-1.0) H 12/15/16 00:20 Ur Leukocyte Esterase Small Guillermina/uL (Negative) 12/15/16 00:20 Urine RBC (Auto) 11 /hpf (0-3) H 12/15/16 00:20 Urine Microscopic WBC 13 /hpf (0-5) H 12/15/16 00:20 Ur Squamous Epith Cells 5 /hpf (0-5) 12/15/16 00:20 - Hospital Course Hospital Course: 26 y/o female w/ significant pmhx pituitary adenoma s/p resection 4years ago presented complaining of nausea and vomiting that started the night before presentation night. She was diagnosed recently with UTI and she has been taking macrobid. CT abdomen showed early acute appendicitis Blood work up was significant for elevated WBC 12 k patient was admitted for acute appendicitis,started on IV fluids, IV zosyn , pain medication and kept NPO. Surgery was consulted and she was taken to OR and underwent laparascopic appendectomy. Post op patient doing well, hemnodynamically stable, afebrile, tolerating PO intake, ambulating and voiding freely. Cleared by surgery for discharge will d/c patient home on Po Percoset PRN for severe pain and augmentin Po BID for 7 days Counselled patient on side effects of Percoset like constipation , drowsiness and advised to avoid driving or using heavy machinery while taking these pills Will need follow up with surgery in 1 week Avoid heavy lifting for 1 week Dx ; 1.Early acute appendicitis 2. subacute UTI 3. Mild dilutional anemia Discharge Exam - Head Exam Head Exam: ATRAUMATIC, NORMOCEPHALIC - Eye Exam Eye Exam: EOMI, Normal appearance, PERRL Pupil Exam: NORMAL ACCOMODATION - ENT Exam ENT Exam: Mucous Membranes Moist, Normal Exam - Neck Exam Neck exam: Full Rom, Normal Inspection - Respiratory Exam Respiratory Exam: Clear to PA & Lateral, NORMAL BREATHING PATTERN. absent: Rales, Rhonchi, Wheezes, Respiratory Distress - Cardiovascular Exam Cardiovascular Exam: REGULAR RHYTHM, RRR, +S1, +S2. absent: JVD - GI/Abdominal Exam GI & Abdominal Exam: Normal Bowel Sounds, Soft. absent: Distended, Guarding, Rebound, Tenderness - Rectal Exam Rectal Exam: Deferred - Extremities Exam Extremities exam: normal capillary refill, normal inspection, pedal pulses present - Back Exam Back exam: NORMAL INSPECTION - Neurological Exam Neurological exam: Alert, CN II-XII Intact, Oriented x3, Reflexes Normal - Psychiatric Exam Psychiatric exam: Normal Affect, Normal Mood - Skin Skin Exam: Dry, Intact, Normal Color, Warm Discharge Plan - Discharge Medications Prescriptions: Amoxicillin/Clavulanate [Augmentin 875 MG-125 MG] 1 tab PO Q12 #14 tab oxyCODONE/Acetaminophen [Percocet 5/325 mg Tab] 1 ea PO Q8 #15 tab - Follow Up Plan Condition: STABLE Disposition: HOME/ ROUTINE Patient education suggested?: Yes Instructions: Appendicitis (DC) Referrals: Sean Holder MD [Staff Provider] -
--- NOTE | 2016-12-22 13:16 | OP ---
PROCEDURE DATE: 12/15/2016 PREOPERATIVE DIAGNOSIS: Acute appendicitis. POSTOPERATIVE DIAGNOSIS: Acute appendicitis. PROCEDURE: Laparoscopic appendectomy. SURGEON: Sean Holder MD. SCHOOL COUNSELOR: Dr. Bosch, Dr. Mccray, Dr. Vyas. ESTIMATED BLOOD LOSS: Minimal. DESCRIPTION OF PROCEDURE: In the operating room, the patient was identified by name, name of the procedure, laterality. As we were unsure of the urinary volume, Merlos was placed and removed at the end. The abdomen had been prepped and draped. Timeout was taken. There was nothing untoward. The abdomen was grabbed. The Veress needle was inserted and the Veress needle was aspirated. There was nothing untoward and 2.5 L of CO2 inserted. The 5 mm port was inserted through a Visiport. A suprapubic 5 and a left lower quadrant 10 x 12 were inserted without issue under direct vision. The tip of the appendix readily came up. The base of the appendix was identified. The mesentery was serially taken with the stapler using the white load and the base was taken with a blue load. There was a little bit of bleeding from the mesentery that stopped spontaneously. The abdomen was irrigated and dried. The incisions were closed in the usual manner using a direct visualization of the fascia and subcuticular stitches of Vicryl were placed. At the end of the case, it was noted that the abdomen was explored. There was nothing untoward. The wounds were injected with Marcaine. The patient was taken to the recovery room in good condition after the sponge and needle count were declared correct. Sean Holder MD
[2019-12-17] MEDS ORDERED: Influenza Vaccine 18yr & older 0.5 ML/45 MCG SYR IM ONE (09:00)
== END 2016-12-16 13:00 | disposition home or self-care (01) ==
LOC: H.ER 23:40 → H.ERHOLD 12-15 05:11 → H.TEL 12-15 09:54
PROVIDERS: ADMIT Internal Medicine; ATTEND Internal Medicine
DX: K35.80 Unspecified acute appendicitis (principal); N39.0 Urinary tract infection, site not specified; D64.9 Anemia, unspecified; F17.200 Nicotine dependence, unspecified, uncomplicated; R74.8 Abnormal levels of other serum enzymes
CPT/HCPCS: 36415; 44970; 74177; 80048; 80053; 81003; 81025; 83690; 85025; 87086; 88304; 96372; 99284; C9113; G0378; J0330; J1170; J1885; J2001; J2250; J2405; J2543; J2550; J2704; J2710; J3010; J7040; J7120; Q9966; Q9967